=== PATIENT | male | born 1945 | race Caucasian/White ===

== ENCOUNTER 2018-07-15 02:19 | Emergency (ER) | payer MEDICARE, BC ==
[~2018-07-15] VITALS: Ht 172.7 cm; Wt 109.0 kg
[2018-07-15 02:28] VITALS: BP 137/86
[2018-07-15 03:14] LABS: BASOPHILS # (AUTO) 0.1 X10'3 (0-0.2); BASOPHILS % (AUTO) 1.3 % (0-1); EOSINOPHILS # (AUTO) 0.3 X10'3 (0-0.9); EOSINOPHILS % (AUTO) 4.6 % (0-6); HEMOGLOBIN 13.3 g/dl (14.0-17.9); LYMPHOCYTES # (AUTO) 2.4 X10'3 (1.1-4.8); LYMPHOCYTES % (AUTO) 37.3 % (21-51); MEAN CORPUSCULAR HEMOGLOBIN 31.2 PG (27.0-31.0); MEAN CORPUSCULAR VOLUME 91.8 FL (78-98); MEAN PLATELET VOLUME 8.3 FL (7.4-10.4); MONOCYTES # (AUTO) 0.6 X10'3 (0-0.9); MONOCYTES % (AUTO) 9.2 % (2-12); NEUTROPHILS % (AUTO) 47.6 % (42-75); PLATELET COUNT 161 X10'3 (140-440); RED BLOOD COUNT 4.25 X10'6 (4.70-6.10); RED CELL DISTRIBUTION WIDTH 13.5 % (11.5-14.5); WHITE BLOOD COUNT 6.3 X10'3 (4.5-11.0)
[2018-07-15 03:30] LABS: ALANINE AMINOTRANSFERASE 31 U/L (12-78); ALBUMIN 3.4 G/DL (3.4-5.0); ALBUMIN/GLOBULIN RATIO 1.1 (1.1-1.5); ALKALINE PHOSPHATASE 70 IU/L (46-116); ANION GAP 9 (8-16); ASPARTATE AMINO TRANSFERASE 16 U/L (10-37); BILIRUBIN,TOTAL 0.4 MG/DL (0.1-1.0); BLOOD UREA NITROGEN 13 MG/DL (7-18); BUN/CREATININE RATIO 18.1 (5.4-32.0); CALCIUM 9.4 MG/DL (8.5-10.1); CHLORIDE 106 MMOL/L (99-107); CREATININE 0.72 MG/DL (0.60-1.10); GLUCOSE 105 MG/DL (70-104); PARTIAL THROMBOPLASTIN TIME 29 SECONDS (22-32); POTASSIUM 3.8 MMOL/L (3.5-5.1); SODIUM 139 MMOL/L (135-145); TOTAL PROTEIN 6.4 G/DL (6.4-8.2); eGFR > 90 ML/MIN
== END 2018-07-15 04:31 | disposition home or self-care (01) ==
LOC: ER 02:20
DX: R00.2 Palpitations (principal); M25.532 Pain in left wrist; R11.0 Nausea
CPT/HCPCS: 36415; 71045; 80053; 84484; 85025; 85610; 85730; 93005; 99284

== ENCOUNTER 2019-10-13 05:25 | Day surgery (SDC) | payer MEDICARE, BC ==
[2019-10-06 14:33] LABS: BASOPHILS # (AUTO) 0.1 X10'3 (0-0.2); BASOPHILS % (AUTO) 0.8 % (0-1); EOSINOPHILS # (AUTO) 0.3 X10'3 (0-0.9); EOSINOPHILS % (AUTO) 4.2 % (0-6); LYMPHOCYTES # (AUTO) 1.8 X10'3 (1.1-4.8); LYMPHOCYTES % (AUTO) 26.7 % (21-51); MEAN CORPUSCULAR HEMOGLOBIN 31.1 PG (27.0-31.0); MEAN CORPUSCULAR HGB CONC 33.7 g/dL (33.0-36.5); MEAN CORPUSCULAR VOLUME 92.2 FL (78-98); MEAN PLATELET VOLUME 8.4 FL (7.4-10.4); MONOCYTES # (AUTO) 0.6 X10'3 (0-0.9); MONOCYTES % (AUTO) 9.5 % (2-12); NEUTROPHILS % (AUTO) 58.8 % (42-75); PRE OP HEMATOCRIT 42.2 % (42.0-52.0); PRE OP HEMOGLOBIN 14.2 g/dL (14.0-17.9); PRE OP PLATELET COUNT 208 X10'3 (140-440); RED BLOOD COUNT 4.57 X10'6 (4.70-6.10); RED CELL DISTRIBUTION WIDTH 13.8 % (11.5-14.5)
[2019-10-06 14:44] LABS: ALBUMIN 3.9 G/DL (3.4-5.0); ALBUMIN/GLOBULIN RATIO 1.1 (1.1-1.5); ALKALINE PHOSPHATASE 86 IU/L (46-116); BLOOD UREA NITROGEN 13 MG/DL (7-18); CALCIUM 9.2 MG/DL (8.5-10.1); CHLORIDE 104 MMOL/L (99-107); PRE OP ALT 33 U/L (30-65); PRE OP ANION GAP 8 (8-16); PRE OP AST 19 U/L (10-37); PRE OP BILIRUB, TOTAL 0.6 MG/DL (0.0-1.0); PRE OP GLUCOSE 93 MG/DL (70-104); PRE OP POTASSIUM 4.1 MMOL/L (3.4-5.1); PRE OP SODIUM 139 MMOL/L (135-145); TOTAL CARBON DIOXIDE 27.3 MMOL/L (24-32); TOTAL PROTEIN 7.4 G/DL (6.4-8.2); eGFR 54 ML/MIN
[2019-10-06 15:00] LABS: CLARITY,URINE CLEAR (Clear); COLOR,URINE YELLOW (Yellow); GLUCOSE, URINE NEGATIVE (Neg); KETONES,URINE NEGATIVE (Neg); LEUKOCYTE ESTERASE ,URINE NEGATIVE (Neg); NITRITES, URINE NEGATIVE (Neg); OCCULT BLOOD,URINE NEGATIVE (Neg); PH,URINE 7.5 (4.8-8.0); PROTEIN,URINE NEGATIVE (Neg); UROBILINOGEN,URINE 0.2 E.U/dL (0.2-1.0)
[2019-10-06 15:13] LABS: UA COLLECTION TYPE NON-SPECIFIED
[~2019-10-13] VITALS: Ht 172.7 cm; Wt 107.0 kg
[2019-10-13] VITALS (8 sets, daily range): BP systolic 128–167; BP diastolic 71–113
[~2019-10-13 05:25] MED LIST: AMLO2.5T2 PO; ASPI-612 PO; ATOR40TA PO; CARV-50 PO; LOSA25TA96 PO; ringers solution, lacted 1,000 ML IV SCH
[2019-10-13] MEDS ORDERED: cefazolin/dext.iso 2gm/50ml 50 ML IV ONE (05:30)
[2019-10-13] MEDS ORDERED: DOCUMENT DATE & TIME OF BETA-BLOCKER PO ONE (05:30)
[2019-10-13] MEDS ORDERED: famotidine 20mg tablet PO ONE (05:30)
[2019-10-13] MEDS ORDERED: BUPIVAcaine/PF 2.5 mg/ml (0.25%) 30ml vial ONE (06:41)
[2019-10-13] MEDS ORDERED: ceFAZolin 1000mg inj ONE (09:47)
[2019-10-13] MEDS ORDERED: ringers solution, lacted 1,000 ML IV SCH (10:06)
[2019-10-13] MEDS ORDERED: morphine 4 MG/ML inj SYRINge IV PRN (10:10)
[2019-10-13] MEDS ORDERED: ondansetron/PF 4mg/2ml inj IV PRN (10:10)
[2019-10-13] MEDS ORDERED: morphine 2 MG/ML inj. syringe IV PRN (10:10)
[2019-10-13] MEDS ORDERED: labetalol 20mg/4ml (5mg/ml) syringe IV PRN (10:10)
[2019-10-13] MEDS ORDERED: hydrALAZINE 20mg/ml inj. IV PRN (10:10)
[2019-10-13] MEDS ORDERED: fentaNYL/PF 50MCG/1 ML 2ML syringe IV PRN ×2 (10:10)
[2019-10-13] MEDS ORDERED: glycopyrrolate 0.2mg/ml inj ONE (10:12)
[2019-10-13] MEDS ORDERED: dexamethasone sod phosphate 10mg/ml inj ONE (10:12)
[2019-10-13] MEDS ORDERED: neostigmine methylsulfate 1 MG/ML 10ml vial ONE (10:12)
[2019-10-13] MEDS ORDERED: sevoflurane 250ml liquid IH ONE (10:12)
[2019-10-13] MEDS ORDERED: midazolam 2 mg/2 ml injection ONE (10:26)
[2019-10-13] MEDS ORDERED: fentaNYL/PF 50MCG/1 ML 2ML syringe ONE (10:26)
[2019-10-13] MEDS ORDERED: propofol inj 20 ML IV ONE (10:31)
[2019-10-13] MEDS ORDERED: rocuronium 10mg/ml inj IV ONE (10:31)
[2019-10-13] MEDS ORDERED: ondansetron/PF 4mg/2ml inj ONE ×2 (10:31)
[2019-10-13] MEDS ORDERED: LIDOcaine 2% (20mg/ml) 5ml vial ONE (10:31)
--- NOTE | 2019-10-13 11:28 | NUR ---
Received from OR via [facility] , accompanied by Anesthesiologist DR Berumen and report given by Anesthesiolgist. PATIENT WAKING UP, DENIES PAIN, V/S WNL, NEUROVASCULAR CHECKS INTACT, 20G PIV RUE, SCD ON, BANDAIDS TO LAP SIGHTS OF ABDOMEN CDI. Pt states comfortable, answering questions appropriately.
--- NOTE | 2019-10-13 12:38 | NUR ---
PATIENT A&OX4, DENIES PAIN, V/S WNL, NEUROVASCULAR CHECKS INTACT, 20G PIV L hand D/C, SCD OFF, 3 BANDAIDS TO LAP SIGHTS OF ABDOMEN REMAIN CDI. I HAVE REVIEWED D/C INSTRUCTIONS WITH PATIENT AND FAMILY BY PHONE, THEY HAVE VERBALIZED UNDERSTANDING. PATIENT WAS D/C HOME WITH ALL BELONGINGS AND FAMILY GAVE TRANSPORT HOME. PAIN MEDS CONFIRMED WITH MD OFFICE WHO CALLED IN PRESCRIPTION. PT STATES HE'S "SORE" BUT PAIN TOLERABLE, PLANS TO TAKE A TRAMADOL WHEN HE GETS HOME. DRANK PO FLUIDS PRIOR TO LEAVING.
== END 2019-10-13 12:38 | disposition home or self-care (01) ==
LOC: PAS 05:25
PROVIDERS: ATTEND Surgery
DX: K42.0 Umbilical hernia with obstruction, without gangrene (principal); I10 Essential (primary) hypertension; M16.10 Unilateral primary osteoarthritis, unspecified hip; I25.10 Atherosclerotic heart disease of native coronary artery without angina pectoris; Z79.899 Other long term (current) drug therapy; Z96.659 Presence of unspecified artificial knee joint; Z98.41 Cataract extraction status, right eye; Z98.42 Cataract extraction status, left eye; Z88.5 Allergy status to narcotic agent; Z79.82 Long term (current) use of aspirin; Z11.59 Encounter for screening for other viral diseases; Z82.49 Family history of ischemic heart disease and other diseases of the circulatory system
CPT/HCPCS: 36415; 49653; 80053; 81003; 82948; 85025; C1758; C1781; J0690; J1100; J2001; J2250; J2270; J2405; J2704; J2710; J3010; J3490; J7120; U0003; A4215; A4618; A7000

== ENCOUNTER 2021-02-28 07:48 | Day surgery (SDC) | payer MEDICARE, BC ==
[2021-02-28] VITALS (14 sets, daily range): BP systolic 138–188; BP diastolic 82–93
[~2021-02-28] VITALS: Ht 172.7 cm; Wt 110.0 kg
[~2021-02-28 07:48] MED LIST changes: +DOCUMENT DATE & TIME OF BETA-BLOCKER PO ONE; +cefoxitin sod inj 2,000 MG in dextrose 5%-water 100 ML IV ONE; +famotidine 20mg tablet PO ONE
[2021-02-28] MEDS ORDERED: BUPIVAcaine 0.5% inj/PF 30 ML ONE (07:49)
[2021-02-28] MEDS ORDERED: BUPIVAcaine/PF 2.5 mg/ml (0.25%) 30ml vial ONE ×2 (08:35→13:11)
[2021-02-28 09:36] LABS: ALBUMIN 3.8 G/DL (3.4-5.0); ALBUMIN/GLOBULIN RATIO 1.2 (1.1-1.5); ALKALINE PHOSPHATASE 93 IU/L (46-116); BLOOD UREA NITROGEN 12 MG/DL (7-18); BUN/CREATININE RATIO 16.9 (5.4-32.0); CALCIUM 8.9 MG/DL (8.5-10.1); CHLORIDE 105 MMOL/L (99-107); CREATININE 0.71 MG/DL (0.60-1.10); PRE OP ALT 38 U/L (30-65); PRE OP ANION GAP 9 (8-16); PRE OP AST 22 U/L (10-37); PRE OP BILIRUB, TOTAL 0.7 MG/DL (0.0-1.0); PRE OP GLUCOSE 116 MG/DL (70-104); PRE OP POTASSIUM 4.2 MMOL/L (3.4-5.1); PRE OP SODIUM 140 MMOL/L (135-145); TOTAL CARBON DIOXIDE 26.5 MMOL/L (24-32); TOTAL PROTEIN 7.1 G/DL (6.4-8.2); eGFR > 90 ML/MIN
[2021-02-28 09:56] LABS: EOSINOPHILS # (AUTO) 0.2 X10'3 (0-0.9); LYMPHOCYTES # (AUTO) 1.3 X10'3 (1.1-4.8); MEAN PLATELET VOLUME 8.1 FL (7.4-10.4); MONOCYTES # (AUTO) 0.4 X10'3 (0-0.9); NEUTROPHILS # (AUTO) 3.4 X10'3 (1.8-7.7); WHITE BLOOD COUNT 5.4 X10'3 (4.5-11.0)
[2021-02-28 09:57] LABS: BASOPHILS % (AUTO) 0.3 % (0-1); EOSINOPHILS % (AUTO) 3.9 % (0-6); HEMATOCRIT 41.7 % (42.0-52.0); LYMPHOCYTES % (AUTO) 23.8 % (21-51); MEAN CORPUSCULAR HEMOGLOBIN 30.7 PG (27.0-31.0); MEAN CORPUSCULAR HGB CONC 33.5 g/dL (33.0-36.5); MEAN CORPUSCULAR VOLUME 91.7 FL (78-98); MONOCYTES % (AUTO) 8.4 % (2-12); NEUTROPHILS % (AUTO) 63.6 % (42-75); PLATELET COUNT 169 X10'3 (140-440); RED BLOOD COUNT 4.55 X10'6 (4.70-6.10); RED CELL DISTRIBUTION WIDTH 13.5 % (11.5-14.5)
[2021-02-28] MEDS ORDERED: sevoflurane 250ml liquid IH ONE (14:08)
[2021-02-28] MEDS ORDERED: propofol inj 20 ML IV ONE (14:09)
[2021-02-28] MEDS ORDERED: fentaNYL/PF 50MCG/1 ML 2ML syringe ONE (14:09)
[2021-02-28] MEDS ORDERED: midazolam 1 mg/ML 2ml injection ONE (14:09)
[2021-02-28] MEDS ORDERED: glycopyrrolate 0.2mg/ml inj ONE (15:02)
[2021-02-28] MEDS ORDERED: neostigmine methylsulfate 1 MG/ML 10ml vial ONE (15:02)
[2021-02-28] MEDS ORDERED: rocuronium 10mg/ml inj IV ONE (15:02)
--- NOTE | 2021-02-28 15:14 | NUR ---
Received from OR via , accompanied by Anesthesiologist DR SANCHEZ and report given by Anesthesiolgist. PT PRESENTS WITH 20G LEFT AC, ABD CLOSURE DRY AND INTACT, VSS. Addendum: 02/28/21 at 1524 by Tamica Acosta RN, RN Amended: Links added.
[2021-02-28] MEDS ORDERED: morphine 4 MG/ML inj SYRINge IV PRN (15:20)
[2021-02-28] MEDS ORDERED: morphine 2 MG/ML inj. syringe IV PRN (15:20)
[2021-02-28] MEDS ORDERED: ringers solution, lacted 1,000 ML IV SCH (15:20)
[2021-02-28] MEDS ORDERED: ondansetron/PF 4mg/2ml inj IV PRN (15:20)
[2021-02-28] MEDS ORDERED: proCHLORperazine 10 MG/2 ml inj IV PRN (15:20)
[2021-02-28] MEDS ORDERED: meperidine/PF 25mg/ml syringe IV PRN ×3 (15:20)
[2021-02-28] MEDS ORDERED: traMADol 50MG tablet PO ONE (17:00)
--- NOTE | 2021-02-28 17:14 | NUR ---
. I HAVE REVIEWED D/C INSTRUCTIONS WITH PATIENT and they have verbalized understanding patient d/c home with all belongings and family gave transport home. Addendum: 02/28/21 at 1730 by Tamica Acosta RN, RN Amended: Links added.
== END 2021-02-28 17:14 | disposition home or self-care (01) ==
LOC: OR 07:48 → PAS 17:14
PROVIDERS: ATTEND Surgery
DX: K80.12 Calculus of gallbladder with acute and chronic cholecystitis without obstruction (principal); K21.9 Gastro-esophageal reflux disease without esophagitis; I10 Essential (primary) hypertension; Z20.822 Contact with and (suspected) exposure to COVID-19; Z79.82 Long term (current) use of aspirin; Z79.899 Other long term (current) drug therapy; Z96.659 Presence of unspecified artificial knee joint; Z98.41 Cataract extraction status, right eye; Z98.42 Cataract extraction status, left eye; Z95.5 Presence of coronary angioplasty implant and graft; Z98.890 Other specified postprocedural states
CPT/HCPCS: 47562; 80053; 85025; 87635; C9803; J0694; J2250; J2704; J2710; J3010; J3490; J7030; J7060; J7120; S0020; Z7506; Z7508; Z7512; 88304; A4215; A4618; A7000